=== PATIENT | male | born 1985 | race Caucasian/White ===

== ENCOUNTER 2019-08-23 16:11 | Outpatient (CLI) | payer OTHER, SELFPAY ==
[2019-08-23 16:43] LABS: Creatinine Urine 74.93 mg/dL (40-278)
[2019-08-23 16:50] LABS: MALB Creatinine Ratio 14.6 mg/g (0-30)
[2019-08-23 17:35] LABS: Alanine Aminotransferase 29 U/L (16-63); Albumin Level 3.8 g/dL (3.4-5.0); Alkaline Phosphatase 73 U/L (46-116); Anion Gap 10.8 mmol/L (7-16); Aspartate Amino Transferase 16 U/L (15-37); Bilirubin,Total 0.3 mg/dL (0.00-1.00); Blood Urea Nitrogen 10 mg/dL (7-18); Calcium 8.8 mg/dL (8.5-10.1); Carbon Dioxide 29 mmol/L (21-32); Chloride 97 mmol/L (98-108); Cholesterol 230 mg/dL (0-200); Estimated Glomerular Filt Rate > 60; Glucose 365 mg/dL (70-99); HDL Direct 32 mg/dL (40-60); LDL Cholesterol Calculated 114 mg/dL (<130); Osmolality Calculated 290 mOsm/kg (285-295); Potassium 3.8 mmol/L (3.5-5.1); Prostate Specific Antigen 0.9 ng/mL (< OR = 4.0); Sodium 133 mmol/L (136-145); Triglycerides 420 mg/dL (0-150)
[2019-08-23 17:46] LABS: LDL Cholesterol Direct 136 mg/dL (0-130)
== END 2019-08-23 16:12 | disposition home or self-care (01) ==
LOC: CHSLAB 16:16
PROVIDERS: PCP Family Medicine; Visit Provider Family Medicine
DX: R32 Unspecified urinary incontinence (principal); E11.9 Type 2 diabetes mellitus without complications
CPT/HCPCS: 36415; 80053; 80061; 82043; 83036; 83721; 84153; 87086

== ENCOUNTER 2020-03-08 08:38 | Outpatient (CLI) | payer OTHER, SELFPAY ==
[2020-03-08 09:03] LABS: Hemoglobin A1C 10.6 % (<5.7)
== END 2020-03-08 08:39 | disposition home or self-care (01) ==
LOC: CHSLAB 08:40
PROVIDERS: PCP Family Medicine; Visit Provider Family Medicine
DX: E11.9 Type 2 diabetes mellitus without complications (principal); I10 Essential (primary) hypertension; G47.33 Obstructive sleep apnea (adult) (pediatric); E78.5 Hyperlipidemia, unspecified
CPT/HCPCS: 36415; 83036

== ENCOUNTER 2020-06-17 14:43 | Outpatient (CLI) | payer OTHER, SELFPAY | END 2020-06-17 14:44 | disposition home or self-care (01) | LOC: CHSLAB 14:45 | PROVIDERS: PCP Family Medicine; Visit Provider Family Medicine | DX: E11.9 Type 2 diabetes mellitus without complications (principal) | CPT/HCPCS: 36415; 83036 ==

== ENCOUNTER 2021-08-25 09:43 | Outpatient (CLI) | payer OTHER, SELFPAY ==
[2021-08-25 10:24] LABS: Creatinine Urine 99.41 mg/dL (40-278); MALB Creatinine Ratio 22.5 mg/g (0-30); Microalbumin Urine Random 22.4 mg/L
[2021-08-25 10:51] LABS: Alanine Aminotransferase 73 U/L (16-63); Alkaline Phosphatase 75 U/L (46-116); Anion Gap 9 mmol/L (8-16); Aspartate Amino Transferase 33 U/L (15-37); Bilirubin,Total 0.4 mg/dL (0.00-1.00); Blood Urea Nitrogen 11 mg/dL (7-18); Calcium 8.7 mg/dL (8.5-10.1); Carbon Dioxide 25 mmol/L (21-32); Chloride 102 mmol/L (98-108); Cholesterol 186 mg/dL (0-200); Estimated Glomerular Filt Rate > 60; Glucose 300 mg/dL (70-99); HDL Direct 33 mg/dL (40-60); LDL Cholesterol Calculated 70 mg/dL (<130); Osmolality Calculated 292 mOsm/kg (285-295); Potassium 4.3 mmol/L (3.5-5.1); Sodium 136 mmol/L (136-145); Total Protein 7.2 g/dL (6.4-8.2); Triglycerides 414 mg/dL (0-150)
[2021-08-25 10:57] LABS: LDL Cholesterol Direct 89 mg/dL (0-130)
== END 2021-08-25 09:44 | disposition home or self-care (01) ==
LOC: CHSLAB 09:50
PROVIDERS: PCP Family Medicine; Visit Provider Family Medicine
DX: E11.9 Type 2 diabetes mellitus without complications (principal)
CPT/HCPCS: 36415; 80053; 80061; 82043; 83036; 83721

== ENCOUNTER 2024-03-21 09:29 | Outpatient (CLI) | payer OTHER, SELFPAY ==
[2024-03-21 09:43] LABS: Basophils Absolute Auto 0.05 K/mm3 (0.00-0.10); Basophils Percent Auto 0.6 % (0.0-1.0); Eosinophils Absolute Auto 0.15 K/mm3 (0.02-0.50); Eosinophils Percent Auto 1.9 % (1.0-6.0); Hematocrit 45.7 % (40.0-54.0); Hemoglobin 15.5 g/dL (14.0-18.0); Immature Granulocyte Absolute 0.04 K/mm3 (0.00-0.00); Immature Granulocyte Percent A 0.5 % (0.0-0.0); Lymphocytes Absolute Auto 1.94 K/mm3 (1.10-4.50); Lymphocytes Percent Auto 24.9 % (18.0-42.0); Mean Corpuscular HGB Conc 33.9 g/dL (32-36); Mean Corpuscular Hemoglobin 29.4 pg (27.0-31.0); Mean Corpuscular Volume 86.7 fL (78.0-102.0); Mean Platelet Volume 10.2 fl (8.7-11.0); Monocytes Absolute Auto 0.44 K/mm3 (0.10-0.90); Monocytes Percent Auto 5.6 % (2.0-11.0); Neutrophils Absolute Auto 5.18 K/mm3 (1.70-7.20); Neutrophils Percent Auto 66.5 % (50.0-70.0); Platelet Count Result 179 K/mm3 (150-420); Red Blood Count 5.27 M/mm3 (4.70-6.10); Red Cell Distribution Width 12.1 % (11.6-14.4); White Blood Count 7.8 K/mm3 (4.8-10.8)
[2024-03-21 09:54] LABS: Creatinine Urine 199.07 mg/dL (40-278); MALB Creatinine Ratio 20.9 mg/g (0-30); Microalbumin Urine Random 41.8 mg/L
[2024-03-21 09:55] LABS: Hemoglobin A1C 10.1 % (<5.7)
[2024-03-21 10:18] LABS: Alanine Aminotransferase 47 U/L (16-63); Albumin Level 3.8 g/dL (3.4-5.0); Alkaline Phosphatase 67 U/L (46-116); Anion Gap 7 mmol/L (4-12); Aspartate Amino Transferase 19 U/L (15-37); Bilirubin,Total 0.5 mg/dL (0.00-1.00); Blood Urea Nitrogen 8 mg/dL (7-18); Calcium 9.1 mg/dL (8.5-10.1); Carbon Dioxide 31 mmol/L (21-32); Chloride 101 mmol/L (98-108); Cholesterol 181 mg/dL (0-200); Estimated Glomerular Filt Rate > 60; Glucose 308 mg/dL (70-99); HDL Direct 42 mg/dL (40-60); LDL Cholesterol Calculated 96 mg/dL (<130); Osmolality Calculated 298 mOsm/kg (285-295); Potassium 5.3 mmol/L (3.5-5.1); Sodium 139 mmol/L (136-145); Total Protein 7.3 g/dL (6.4-8.2); Triglycerides 215 mg/dL (0-150)
--- OUTSIDE RECORDS SUMMARY | 2024-03-21 10:22 | XMS_ITS | Clinical Summary ---
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 Gender Identity Not on file Sexual Orientation Not on file Plan of Treatment Health Maintenance Due Date Last Done Comments Annual Physical 07/21/1986 Hepatitis C 07/21/2001 DTaP, Tdap and Td Vaccines ( 1 - Tdap) 07/21/2002 Hepatitis B Vaccines (1 of 3 - 19+ 3-dose series) 07/21/2002 COVID-19 Vaccine (2023-2 5 season) 2023 Influenza Adult (#1) 2023 HPV Vaccines Aged Out No longer eligi ble based on patient's age to complete this topic Meningococcal B Vaccine Aged Out No l onger eligible based on patient's age to complete this topic Meningococcal Vaccine Aged Out No joi efrain eligible based on patient's age to complete this topic Pneumococcal Vaccine: Pediat rics (0 to 5 Years) and At-Risk Patients (6 to 64 Years) Aged Out No longer eligible b ased on patient's age to complete this topic RSV Immunizations Under 20 Months Aged Out No longer eligible based on patient's age to complete this topic
--- OUTSIDE RECORDS SUMMARY | 2024-03-21 10:22 | XMS_ITS | Encounter Summary ---
Author Organization [facility] Address [address] [place] [address] Care Team Providers Care Message Broker Developer Name Role Phone Gregg Solitario DO Primary Care Provider [phone] Encounter Details Date Type Department Care Team (Late st Contact Info) Description 03/16/2024 Results Follow-Up [facility] at Work [employer] [place] [address] [place] [place] [address] Amy Amaro MD [address] [place] [place] [address] TSH, LIPID PANEL, COMPREHENSIVE METABOLIC PANEL, CBC WITH DIFFERENTIAL Social History Tobacco Use Types Packs/Day Years Used Date Smoking Tobacco: Never Assessed Sex and Gender Information Value Date Recorded Sex Assigned at Male 10/12/2023 6:32 AM CDT Legal Sex Male 2:10 PM CDT Gender Identity Male 10/12/2023 6:32 AM CDT Sexual Orientation Straight 10/12/2023 6: 32 AM CDT documented as of this encounter Miscellaneous Notes * Result Encounter Note - Jenn Morales - 03/16/2024 1:20 PM CST Called and informed pt who voiced understanding. CTOR OF TEACHING AND LEARNING documented in this encounter Plan of Treatment Not on file documented as of this encounter Visit Diagnoses Not on filedocumented in this encounter Care Teams Message Broker Developer Relationship Specialty Start Date End Date Gregg Solitario DO [address] [place] [address] PCP - General Family Practice 04/03/22 documented as of this encounter
--- OUTSIDE RECORDS SUMMARY | 2024-03-21 10:22 | XMS_ITS | Clinical Summary ---
Author Organization [facility] [employer] [place] Address [address] [address] [address] Care Team Providers Care Trousseau Consultant Name Role Phone Altaf Greggmagdi TOLLIVER Primary Care Provider [phone] Allergies No known active allergies Medications Mounjaro 7.5 mg/0.5 mL Pen Injector Inject 7.5 mg by subcutaneous injection every 7 days. 4 Active metFORMIN (GLUCOPHAGE) 1,000 mg tablet Take 1,000 mg by mouth 2 times daily with meals. Active lisinopriL (PRINIVIL) 5 mg tablet Take 5 mg by mouth daily. Active buPROPion HCL (WELLBUTRIN SR) 200 mg Sustained Release 12 hour tablet Take 200 mg by mouth 2 times daily. Active Active Problems No known active problems Encounters Date Type Department Care Team Description 03/16/2024 Results Follow-Up [facility] [place] [address] [place] [address] Amy Amaro MD TSH, LIPID PANEL, COMPREHENSIVE METABOLIC PANEL, CBC WITH DIFFERENTIAL 03/15/2024 9:40 AM PARA EDUCATOR Office Visit [facility] [place] [address] [place] [address] Screening for condition (Primary Dx) 03/14/2024 External Device Data STL ABSTRACTION Provider, Abstract 02/29/2024 7:30 AM PARA EDUCATOR Office Visit [facility] [employer] [place] [address] [place] [address] Amy Amaro MD Influenza A (Primary Dx) 02/29/2024 External Device Data STL ABSTRACTION Provider, Abstract from Last 3 Months Social History Tobacco Use Types Packs/Day Years Used Date Smoking Tobacco: Never Assessed Sex and Gender Information Value Date Recorded Sex Assigned at Male 10/12/2023 6:32 AM CDT Legal Sex Male 2:10 PM CDT Gender Identity Male 10/12/2023 6:32 AM CDT Sexual Orientation Straight 10/12/2023 6: 32 AM CDT Last Filed Vital Signs Vital Sign Reading Time Taken Comments Blood Pressure 98/78 03/15/2024 9:35 AM PARA EDUCATOR Pulse 90 02/29/2024 7:27 AM PARA EDUCATOR Temperature 35.7 C (96.2 F) 02/29/2024 7:27 AM PARA EDUCATOR Respiratory Rate 18 02/29/2024 7:27 AM PARA EDUCATOR Oxygen Saturation 99% 02/29/2024 7:27 AM PARA EDUCATOR Inhaled Oxygen Concentration - - Weight 92.8 kg (204 lb 9.6 oz) 03/15/2024 9:35 A M PARA EDUCATOR Height 172.7 cm (5' 8 ) 03/15/2024 9:35 AM PARA EDUCATOR Body Mass Index 31.11 03/15/2024 9:35 AM PARA EDUCATOR Plan of Treatment Health Maintenance Due Date Last Done Comments Pre-Diabetes and Diabetes Screening 1983 DTAP/TDAP/TD VACCINES (1 - Tdap) 07/21/2002 HEPATITIS B VACCINES (1 of 3 - 19+ 3-dose series) 07/21/2002 INFLUENZA VACCINE (#1) 2023 12/13/2004 HPV VACCINES Aged Out No longer eligi ble based on patient's age to complete this topic Procedures Procedure Name Priority Date/Time Associated Diagnosis Comments CBC WITH DIFFERENTIAL Routine 03/15/2024 9:24 AM PARA EDUCATOR Screening for condition COMPREHENSIVE METABOLIC PANEL Routine 03/15/2024 9:24 AM PARA EDUCATOR Screening for condition LIPID PANEL Routine 03/15/2024 9:24 AM PARA EDUCATOR Screening for condition TSH Routine 03/15/2024 9:24 AM PARA EDUCATOR Screening for condition from Last 3 Months Results * CBC WITH DIFFERENTIAL (03/15/2024 9:24 AM PARA EDUCATOR) WBC 6.7 3.8 - 10.8 Thousand/u L [facility] RBC 4.89 4.20 - 5.80 Million/uL [facility] HEMOGLOBIN 14.9 13.2 - 17.1 g/dL [facility] HEMATOCRIT 43.7 38.5 - 50.0 % [facility] MCV 89.4 80.0 - 100.0 fL [facility] MCH 30.5 27.0 - 33.0 pg [facility] MCHC 34.1 32.0 - 36.0 g/dL [facility] Comment: For adults, a slight decrease in the calculated MCHC value (in the range of 30 to 32 g/dL) is most likely not clinically significant; however, it should be interpreted with caution in correlation with other red cell parameters and the patient's clinical condition. RDW 12.8 11.0 - 15.0 % [facility] PLATELETS 161 140 - 400 Thousand/u L [facility] MPV 10.9 7.5 - 12.5 fL [facility] NEUTROPHIL ABSOLUTE 3,973 1,500 - 7,800 cells/uL [facility] LYMPHOCYTE ABSOLUTE 2,057 850 - 3,900 cells/uL [facility] MONOCYTE ABSOLUTE 509 200 - 950 cells/uL [facility] EOSINOPHIL ABSOLUTE 121 15 - 500 cells/uL [facility] BASOPHILS ABSOLUTE 40 0 - 200 cells/uL [facility] NEUTROPHIL 59.3 % [facility] LYMPHOCYTES 30.7 % [facility] MONOCYTE 7.6 % [facility] EOSINOPHILS 1.8 % [facility] BASOPHILS 0.6 % [facility] Comment: Test Performed at: [employer] [facility] [id number] [address] Birgit De La O MD Blood 03/15/2024 9:24 AM PARA EDUCATOR 03/16/2024 3:58 AM PARA EDUCATOR us Amy Amaro MD HEMATOLOGY ORDERABLES Final Re sult Performing Organization Address [facility] Co de Phone Number [facility] [phone] [facility] [address] * TSH (03/15/2024 9:24 AM PARA EDUCATOR) TSH 0.62 0.40 - 4.50 mIU/L [facility] Comment: Test Performed at: [facility] [place] [address] [place] [id number] Birgit De La O MD Blood 03/15/2024 9:24 AM PARA EDUCATOR 03/16/2024 3:58 AM PARA EDUCATOR us Amy Amaro MD CHEMISTRY ORDERABLES Final Res ult Performing Organization Address [facility] Co de Phone Number [facility] [phone] [facility] [address] * (ABNORMAL) LIPID PANEL (03/15/2024 9:24 AM PARA EDUCATOR) Pathologist [facility] CHOLESTEROL 169 <200 mg/dL [facility] HDL 38(L) > OR = 40 mg/dL [facility] TRIGLYCERIDE 122 <150 mg/dL [facility] LDL CALCULATED 108(H) mg/dL (calc) [facility] Comment: Reference range: <100 Desirable range <100 mg/dL for primary prevention; <70 mg/dL for patients with CHD or diabetic patients with > or = 2 CHD risk factors. LDL-C is now calculated using the Mark-Tita calculation, which is a validated novel method providing better accuracy than the Friedewald equation in the estimation of LDL-C. Mark SS et al. DAREN. 2013;310(19): 4405-6075 (http://education.FoodyDirect.Advanced Photonix/faq/KDR418) CHOL/HDL RATIO 4.4 <5.0 (calc) [facility] NON-HDL CHOLESTEROL 131(H) <130 mg/dL (calc) [facility] Comment: For patients with diabetes plus 1 major ASCVD risk factor, treating to a non-HDL-C goal of <100 mg/dL (LDL-C of <70 mg/dL) is considered a therapeutic option. Test Performed at: [facility] [address] [address] Birgit De La O MD Blood 03/15/2024 9:24 AM PARA EDUCATOR 03/16/2024 3:58 AM PARA EDUCATOR us Amy Amaro MD CHEMISTRY ORDERABLES Final Res ult [facility] [phone] [employer] [address] [address] * (ABNORMAL) COMPREHENSIVE METABOLIC PANEL (03/15/2024 9:24 AM PARA EDUCATOR) GLUCOSE 161(H) 65 - 99 mg/dL [facility] Comment: Fasting reference interval For someone without known diabetes, a glucose value >125 mg/dL indicates that they may have diabetes and this should be confirmed with a follow-up test. BUN 8 7 - 25 mg/dL [facility] CREATININE 0.74 0.60 - 1.29 mg/dL [facility] GFR 117 > OR = 60 mL/min/1. 73m2 [facility] BUN/CREAT RATIO SEE NOTE: 6 - 22 (calc) [facility] Comment: Not Reported: BUN and Creatinine are within reference range. SODIUM 140 135 - 146 mmol/L [facility] POTASSIUM 4.7 3.5 - 5.3 mmol/L [facility] CHLORIDE 103 98 - 110 mmol/L [facility] CO2 28 20 - 32 mmol/L [facility] CALCIUM 9.0 8.6 - 10.3 mg/dL [facility] TOTAL PROTEIN 6.9 6.1 - 8.1 g/dL [facility] ALBUMIN 4.2 3.6 - 5.1 g/dL [facility] GLOBULIN 2.7 1.9 - 3.7 g/dL (calc) [facility] ALBUMIN/GLOBULIN RATIO 1.6 1.0 - 2.5 (calc) [facility] BILIRUBIN TOTAL 0.5 0.2 - 1.2 mg/dL [facility] ALKALINE PHOSPHATASE 53 36 - 130 U/L [facility] AST 22 10 - 40 U/L [facility] ALT 33 9 - 46 U/L [facility] Comment: Test Performed at: [facility] [address] [place] [address] Birgit De La O MD Blood 03/15/2024 9:24 AM PARA EDUCATOR 03/16/2024 3:58 AM PARA EDUCATOR us Amy Amaro MD CHEMISTRY ORDERABLES Final Res ult [facility] [phone] [facility] [address] [place] [address] from Last 3 Months Insurance * Guarantor: [employer] A THRU D (C) Account Type Relation to Patient Date of Phone Billing Address Corporate Employer ATTN: JENARO MACKAY [address] [address] ALLEGIAN OPEN ACCESS Care Teams Trousseau Consultant Relationship Specialty Start Date End Date Gregg Solitario DO [address] [place] [address] PCP - General Family Practice 04/03/22
== END 2024-03-21 09:30 | disposition home or self-care (01) ==
LOC: CHSLAB 09:31
PROVIDERS: PCP Family Medicine; Visit Provider Family Medicine
DX: E11.9 Type 2 diabetes mellitus without complications (principal); I10 Essential (primary) hypertension
CPT/HCPCS: 36415; 80053; 80061; 82043; 83036; 85025

== ENCOUNTER 2024-04-03 09:24 | Emergency (ER) | payer OTHER, SELFPAY ==
--- NOTE | ~2024-04-03 | XR_ITS ---
CHEST RADIOGRAPH, PA AND LATERAL CLINICAL HISTORY: pt states chest pain since this morning, cough . COMPARISON: None available TECHNIQUE: PA and lateral views of the chest. FINDINGS The cardiomediastinal silhouette is unremarkable. The lungs are clear. Visualized osseous structures and soft tissues are unremarkable. IMPRESSION: No focal infiltrate or effusion. Reviewed, dictated and finalized at location A. COAL KILN BURNER
--- NOTE | ~2024-04-03 | CT_ITS ---
EXAMINATION: CTA chest PE protocol DATE: 04/03/2024 16:07 INDICATION: Chest wall pain. Shortness of breath. TECHNIQUE: Computed tomography angiography (CTA) of the chest was performed with 100 mL Omnipaque-350 intravenous contrast timed to evaluate the pulmonary arteries. Coronal maximum intensity projection 3D-reconstructions were created by the technologist. Automated exposure control and iterative reconst ruction technique were employed. The dose-length product was 595.54 mGy-cm. COMPARISON: Chest 2 views 04/03/2024 FINDINGS: The lungs demonstrate mild atelectasis. No pleural effusion. The heart size is normal. No p ericardial effusion. There are coronary artery calcifications. There is no pulmonary embolus. There i s diffuse hepatic steatosis. There is mild thoracic spondylosis. IMPRESSION: 1. No pulmonary embolus. Reviewed, dictated and finalized at location A. RTISING SALES CONSULTANT IMPRESSION: 1. No pulmonary embolus.
--- NOTE | 2024-04-03 09:26 | ECG_ITS ---
Test Date: 2024-04-03 09:31:12 Measurements Intervals [place] Rate: 98 P: 12 WI: 124 QRS: 18 QRSD: 88 T: 33 QT: 268 QTc: 343 Interpretive Statements SINUS RHYTHM NONSPECIFIC T-WAVE ABNORMALITY- ANTEROLAT/INF LEADS BASELINE ARTIFACT- I, II, AVR BORDERLINE ECG No previous ECG available for comparison Electronically Signed On 04-03-2024 10:04:48 PACKAGING TECH by Cesario Matthews D.O.
[2024-04-03 09:27] VITALS: BP 127/81; PULSE 95; RESP 19; TEMP 36.6; O2SAT 100
[2024-04-03 09:49] LABS: Basophils Percent Auto 0.4 % (0.2-1.2); Eosinophils Percent Auto 0.1 % (0-4.4); Hematocrit 46.3 % (42.0-52.0); Hemoglobin 15.8 g/dL (14.0-18.0); Immature Granulocyte Absolute 0.05 K/mm3 (0.00-0.031); Immature Granulocyte Percent A 0.6 % (0-0.5); Lymphocytes Absolute Auto 0.93 K/mm3 (0.9-3.2); Lymphocytes Percent Auto 11.2 % (18.3-44.2); Mean Corpuscular HGB Conc 34.1 g/dl (32-36); Mean Corpuscular Hemoglobin 29.4 pg (26-34); Mean Corpuscular Volume 86.1 fl (80-100); Mean Platelet Volume 9.9 fl (7.4-10.4); Monocytes Absolute Auto 0.5 K/mm3 (0.1-0.6); Neutrophils Absolute Auto 6.8 K/mm3 (1.3-6.7); Neutrophils Percent Auto 81.7 % (45.5-73.1); Platelet Count Result 207 k/mm3 (150-375); Red Blood Count 5.38 M/mm3 (4.6-6.20); Red Cell Distribution Width 12.4 % (11.5-14.5); White Blood Count 8.3 K/mm3 (4.5-10.0)
[2024-04-03 10:00] LABS: Partial Thromboplastin Time 25.7 Seconds (22.3-36.8)
[2024-04-03 10:02] LABS: Alanine Aminotransferase 28 U/L (6-50); Albumin Level 4.1 g/dL (3.5-5.1); Alkaline Phosphatase 68 U/L (38-126); Anion Gap 11 mmol/L (4-12); Aspartate Amino Transferase 21 U/L (17-59); Bilirubin,Total 0.9 mg/dL (0.2-1.3); Blood Urea Nitrogen 13 mg/dL (9-20); Carbon Dioxide 25 mmol/L (22-30); Chloride 96 mmol/L (98-107); Estimated CRCL calculation 108 ml/min; Estimated Glomerular Filt Rate > 60; Glucose 354 mg/dL (65-110); Lipase 62 U/L (23-300); Potassium 4.5 mmol/L (3.4-5.0); Sodium 132 mmol/L (137-145)
--- OUTSIDE RECORDS SUMMARY | 2024-04-03 10:02 | XMS_ITS | Clinical Summary ---
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
--- OUTSIDE RECORDS SUMMARY | 2024-04-03 10:02 | XMS_ITS | Encounter Summary ---
Author Organization [facility] Address [address] [place] [address] Care Team Providers Care Thermite Bomb Loader Name Role Phone Gregg Solitario DO Primary Care Provider [phone] Encounter Details Date Type Department Care Team (Late st Contact Info) Description 03/16/2024 Results Follow-Up [facility] at [facility] [employer] [address] [place] [address] Amy Amaro MD [address] [place] [address] TSH, LIPID PANEL, COMPREHENSIVE METABOLIC [...] Called and informed pt who voiced understanding. STAPLER documented in this encounter Plan of Treatment Not on file documented as of this encounter Visit Diagnoses Not on filedocumented in this encounter Care Teams Thermite Bomb Loader Relationship Specialty Start Date End Date Gregg Solitario DO [address] [place] [address] PCP - General Family Practice 04/03/22 documented as of this encounter
--- OUTSIDE RECORDS SUMMARY | 2024-04-03 10:02 | XMS_ITS | Clinical Summary ---
Author Organization [facility] [employer] [place] Address [address] [address] Care Team Providers Care Radio Repairer Name Role Phone Altaf Greggmagdi TOLLIVER Primary Care Provider [phone] Allergies No known active allergies Medications Mounjaro [...] Department Care Team Description 03/16/2024 Results Follow-Up [facility] [place] [address] [facility] [place] [address] Amy Amaro MD TSH, LIPID PANEL, COMPREHENSIVE METABOLIC PANEL, CBC WITH DIFFERENTIAL 03/15/2024 9:40 AM FAST FOOD CASHIER Office Visit [facility] [place] [address] [facility] [place] [address] Screening for condition (Primary Dx) 03/14/2024 External Device Data STL ABSTRACTION Provider, Abstract 02/29/2024 7:30 AM FAST FOOD CASHIER Office Visit [facility] [employer] [place] [address] [place] [address] Amy Amaro MD Influenza A [...] Comments Blood Pressure 98/78 03/15/2024 9:35 AM FAST FOOD CASHIER Pulse 90 02/29/2024 7:27 AM FAST FOOD CASHIER Temperature 35.7 C (96.2 F) 02/29/2024 7:27 AM FAST FOOD CASHIER Respiratory Rate 18 02/29/2024 7:27 AM FAST FOOD CASHIER Oxygen Saturation 99% 02/29/2024 7:27 AM FAST FOOD CASHIER Inhaled Oxygen Concentration - - Weight 92.8 kg (204 lb 9.6 oz) 03/15/2024 9:35 A M FAST FOOD CASHIER Height 172.7 cm (5' 8 ) 03/15/2024 9:35 AM FAST FOOD CASHIER Body Mass Index 31.11 03/15/2024 9:35 AM FAST FOOD CASHIER Plan of Treatment Health Maintenance Due Date [...] CBC WITH DIFFERENTIAL Routine 03/15/2024 9:24 AM FAST FOOD CASHIER Screening for condition COMPREHENSIVE METABOLIC PANEL Routine 03/15/2024 9:24 AM FAST FOOD CASHIER Screening for condition LIPID PANEL Routine 03/15/2024 9:24 AM FAST FOOD CASHIER Screening for condition TSH Routine 03/15/2024 9:24 AM FAST FOOD CASHIER Screening for condition from Last 3 Months Results * CBC WITH DIFFERENTIAL (03/15/2024 9:24 AM FAST FOOD CASHIER) WBC 6.7 3.8 - 10.8 Thousand/u L [...] [facility] Comment: Test Performed at: [facility] [id number] [address] Birgit De La O MD Blood 03/15/2024 9:24 AM FAST FOOD CASHIER 03/16/2024 3:58 AM FAST FOOD CASHIER us Amy Aamro MD HEMATOLOGY ORDERABLES Final Re sult Performing Organization Address [facility] Co de Phone Number [facility] [phone] [facility] [address] * TSH (03/15/2024 9:24 AM FAST FOOD CASHIER) TSH 0.62 0.40 - 4.50 mIU/L [facility] Comment: Test Performed at: [facility] [address] [place] [phone] Birgit De La O MD Blood 03/15/2024 9:24 AM FAST FOOD CASHIER 03/16/2024 3:58 AM FAST FOOD CASHIER us Amy Amaro MD CHEMISTRY ORDERABLES Final Res ult Performing Organization Address [facility] Co de Phone Number [facility] [phone] [address] * (ABNORMAL) LIPID PANEL (03/15/2024 9:24 AM FAST FOOD CASHIER) Pathologist [facility] CHOLESTEROL 169 <200 mg/dL [facility] [...] LDL-C. Mark SS et al. DAREN. 2013;310(19): 7334-0123 (http://education.[employer]is.Livestar/faq/NXF799) CHOL/HDL RATIO 4.4 <5.0 (calc) [facility] NON-HDL CHOLESTEROL 131(H) <130 mg/dL (calc) [facility] Comment: For patients with diabetes plus 1 major ASCVD risk factor, treating to a non-HDL-C goal of <100 mg/dL (LDL-C of <70 mg/dL) is considered a therapeutic option. Test Performed at: [facility] [address] [address] Birgit De La O MD Blood 03/15/2024 9:24 AM FAST FOOD CASHIER 03/16/2024 3:58 AM FAST FOOD CASHIER us Amy Amaro MD CHEMISTRY ORDERABLES Final Res ult [facility] [phone] [facility] [address] [address] * (ABNORMAL) COMPREHENSIVE METABOLIC PANEL (03/15/2024 9:24 AM FAST FOOD CASHIER) GLUCOSE 161(H) 65 - 99 mg/dL [facility] Comment: Fasting reference interval For someone [...] [facility] Comment: Test Performed at: [facility] [address] [place] [address] Birgit De La O MD Blood 03/15/2024 9:24 AM FAST FOOD CASHIER 03/16/2024 3:58 AM FAST FOOD CASHIER us Amy Amaro MD CHEMISTRY ORDERABLES Final Res ult [facility] [phone] [facility] [address] [place] [address] from Last 3 Months Insurance * Guarantor: [employer] A THRU D (C) Account Type Relation to Patient Date of Phone Billing Address Corporate Employer ATTN: JENRAO MACKAY [address] [address] ALLEGIAN OPEN ACCESS Care Teams Radio Repairer Relationship Specialty Start Date End Date Gregg Solitario DO [address] [place] [address] PCP - General Family Practice 04/03/22
[2024-04-03 10:14] LABS: Troponin I < 0.012 ng/mL (0.000-0.034)
[2024-04-03 13:38] LABS: Troponin I < 0.012 ng/mL (0.000-0.034)
[2024-04-03 14:00] VITALS: BP 129/88; PULSE 89; RESP 21; O2SAT 97
--- NOTE | 2024-04-03 14:41 | ED_ITS ---
HPI - General Adult General Chief complaint: Chest Pain Stated complaint: chest pain Time Seen by Provider: 04/03/24 13:53 History of Present Illness HPI narrative: 38-year-old male presents emergency department for evaluation for body aches fatigue associated cough. Patient reports the symptoms started yesterday. This morning patient was having left lower chest wall tenderness to palpation. Patient denies any radiation the pain to his neck to his back or to his arms. Patient states that pain has resolved but patient does still feel fatigued. Patient denies any previous cardiac history. Related Data Allergies Allergy/AdvReac Type Severity Reaction Status Date / Time No Known Allergies Allergy Verified 03/27/24 13:34 Review of Systems 2 Review of Systems: All systems reviewed & are unremarkable except as noted in HPI and below PMFSH Past Medical History Medical History Hypertension ERROL (obstructive sleep apnea) DM2 (diabetes mellitus, type 2) Hyperlipidemia Diabetes mellitus Surgical History Surgical History No history of previous surgery No significant past surgical history Family History Family History Mother , Age 28 Acute myocardial infarction Social History Social History Smoking packs per day: 1 Smoking cigarettes per day: 20.0 Years smoked: 15 Smoking pack-years: 15.00 Smoking status: Former smoker Additional smoking assessment comments: Quit smoking August 2020. 15pk yr history. Gender identity (if verbalized by the patient): Male Exam 2 Narrative: APPEARANCE: Well appearing, no pain, no distress, well-nourished. HEAD: normocephalic, atraumatic. EYES: PERRLA/EOMI, conjunctivae clear. NOSE: Normal no drainage EARS:TMS clear with good light reflex. THROAT: Pharynx clear, no exudate. NECK: Supple. No adenopathy, no masses. RESPIRATORY: Airway patent, respirations nonlabored. Clear to auscultation bilaterally, no rales, rhonchi, wheezing. CARDIOVASCULAR: Regular rate and rhythm without murmurs rubs or gallops. ABDOMINAL: Soft, nontender, nondistended, normal bowel sounds MUSCULOSKELETAL: Moves all extremities. Strength/ROM intact, No edema, No calf tenderness. Reproducible chest wall tenderness NEURO: Alert. Cranial nerves II through XII intact. Grossly intact SKIN: Warm, dry. Normal Color Course Vital Signs Vital signs: Vital Signs Temperature 97.9 F 04/03/24 09:27 Pulse Rate 95 04/03/24 09:27 Respiratory Rate 19 04/03/24 09:27 Blood Pressure 127/81 04/03/24 09:27 Pulse Oximetry 100 04/03/24 09:27 Oxygen Delivery Room Air 04/03/24 09:27 Temperature 97.9 F 04/03/24 09:27 Pulse Rate 88 04/03/24 16:00 Respiratory Rate 21 H 04/03/24 16:00 Blood Pressure 123/83 04/03/24 16:00 Pulse Oximetry 99 04/03/24 16:00 Oxygen Delivery Room Air 04/03/24 14:00 Medical Decision Making MDM Narrative Medical decision making narrative: 38-year-old male to the emergency department for evaluation for body aches fatigue cough congestion and chest wall pain. Patient is currently afebrile with no leukocytosis hemoglobin of 15.8. INR is 1.0. Patient has no significant abnormalities on his CMP, patient is a type 2 diabetic and does have a blood sugar of 354. Patient was treated with IV fluids. CTA was negative for pulmonary embolism. Troponin was negative Differential Diagnosis Differential Diagnosis: Influenza, COVID, RSV, viral syndrome, pneumonia, ACS, pulmonary embolism Vital Signs Vital Signs: Vital Signs Temperature 97.9 F 04/03/24 09:27 Pulse Rate 95 04/03/24 09:27 Respiratory Rate 19 04/03/24 09:27 Blood Pressure 127/81 04/03/24 09:27 Pulse Oximetry 100 04/03/24 09:27 Oxygen Delivery Room Air 04/03/24 09:27 Temperature 97.9 F 04/03/24 09:27 Pulse Rate 88 04/03/24 16:00 Respiratory Rate 21 H 04/03/24 16:00 Blood Pressure 123/83 04/03/24 16:00 Pulse Oximetry 99 04/03/24 16:00 Oxygen Delivery Room Air 04/03/24 14:00 Lab Data Lab results reviewed: Yes I reviewed the patient's lab results. 04/03/24 09:40 04/03/24 09:40 Labs: Lab Results 04/03/24 04/03/24 04/03/24 Range/Units 09:40 12:59 14:46 WBC 8.3 (4.5-10.0) K/mm3 RBC 5.38 (4.6-6.20) M/mm3 Hgb 15.8 (14.0-18.0) g/dL Hct 46.3 (42.0-52.0) % MCV 86.1 (80-100) fl MCH 29.4 (26-34) pg MCHC 34.1 (32-36) g/dl RDW 12.4 (11.5-14.5) % Plt Count 207 (150-375) k/mm3 MPV 9.9 (7.4-10.4) fl Immature Gran % (Auto) 0.6 H (0-0.5) % Neut % (Auto) 81.7 H (45.5-73.1) % Lymph % (Auto) 11.2 L (18.3-44.2) % [place] % (Auto) 6.0 (2.6-8.5) % Eos % (Auto) 0.1 (0-4.4) % Baso % (Auto) 0.4 (0.2-1.2) % Lymph # (Auto) 0.93 (0.9-3.2) K/mm3 [place] # (Auto) 0.5 (0.1-0.6) K/mm3 Eos # (Auto) 0.0 (0-0.3) K/mm3 Baso # (Auto) 0.0 (0.0-0.1) K/mm3 Abs Immat Gran (auto) 0.05 H (0.00-0.031) K/mm3 Absolute Neuts (auto) 6.8 H (1.3-6.7) K/mm3 Absolute Nucleated RBC 0.000 (0.0-0.012) K/mm3 Nucleated RBC % 0.0 (0.0-0.2) % PT 14.0 (11.1-14.7) Seconds INR 1.0 APTT 25.7 (22.3-36.8) Seconds Sodium 132 L (137-145) mmol/L Potassium 4.5 (3.4-5.0) mmol/L Chloride 96 L (98-107) mmol/L Carbon Dioxide 25 (22-30) mmol/L Anion Gap 11 (4-12) mmol/L BUN 13 (9-20) mg/dL Creatinine 0.76 (0.7-1.3) mg/dL Estim Creat Clear Calc 108 ml/min Estimated GFR > 60 (59 - ) Glucose 354 H (65-110) mg/dL Calcium 9.0 (8.4-10.2) mg/dL Total Bilirubin 0.9 (0.2-1.3) mg/dL AST 21 (17-59) U/L ALT 28 (6-50) U/L Alkaline Phosphatase 68 (38-126) U/L Troponin I < 0.012 < 0.012 (0.000-0.034) ng/mL Total Protein 8.0 (6.3-8.2) g/dL Albumin 4.1 (3.5-5.1) g/dL Lipase 62 (23-300) U/L Influenza A (RT-PCR) Negative (Negative) Influenza B (RT-PCR) Negative (Negative) RSV (RT-PCR) Negative (Negative) SARS-CoV-2 RNA (RT-PCR) Negative (Negative) 04/03/24 Range/Units 16:37 WBC (4.5-10.0) K/mm3 RBC (4.6-6.20) M/mm3 Hgb (14.0-18.0) g/dL Hct (42.0-52.0) % MCV (80-100) fl MCH (26-34) pg MCHC (32-36) g/dl RDW (11.5-14.5) % Plt Count (150-375) k/mm3 MPV (7.4-10.4) fl Immature Gran % (Auto) (0-0.5) % Neut % (Auto) (45.5-73.1) % Lymph % (Auto) (18.3-44.2) % [place] % (Auto) (2.6-8.5) % Eos % (Auto) (0-4.4) % Baso % (Auto) (0.2-1.2) % Lymph # (Auto) (0.9-3.2) K/mm3 [place] # (Auto) (0.1-0.6) K/mm3 Eos # (Auto) (0-0.3) K/mm3 Baso # (Auto) (0.0-0.1) K/mm3 Abs Immat Gran (auto) (0.00-0.031) K/mm3 Absolute Neuts (auto) (1.3-6.7) K/mm3 Absolute Nucleated RBC (0.0-0.012) K/mm3 Nucleated RBC % (0.0-0.2) % PT (11.1-14.7) Seconds INR APTT (22.3-36.8) Seconds Sodium (137-145) mmol/L Potassium (3.4-5.0) mmol/L Chloride (98-107) mmol/L Carbon Dioxide (22-30) mmol/L Anion Gap (4-12) mmol/L BUN (9-20) mg/dL Creatinine (0.7-1.3) mg/dL Estim Creat Clear Calc ml/min Estimated GFR (59 - ) Glucose (65-110) mg/dL Calcium (8.4-10.2) mg/dL Total Bilirubin (0.2-1.3) mg/dL AST (17-59) U/L ALT (6-50) U/L Alkaline Phosphatase (38-126) U/L Troponin I < 0.012 (0.000-0.034) ng/mL Total Protein (6.3-8.2) g/dL Albumin (3.5-5.1) g/dL Lipase (23-300) U/L Influenza A (RT-PCR) (Negative) Influenza B (RT-PCR) (Negative) RSV (RT-PCR) (Negative) SARS-CoV-2 RNA (RT-PCR) (Negative) Imaging Data Radiologist's impression: Impressions Chest X-Ray 04/03/24 09:46 IMPRESSION: No focal infiltrate or effusion. Chest CTA 04/03/24 16:09 IMPRESSION: 1. No pulmonary embolus. Discharge Plan Discharge Clinical Impression: Acute viral syndrome Patient Disposition: Home, Self-Care Condition: Stable Instructions: Antibiotic Form, Viral Syndrome (ED) Additional Instructions: Tylenol and ibuprofen for pain control. Drink plenty of fluids. Have close follow-up with your primary care physician. Have close follow-up with your primary care physician for additional outpatient cardiac testing. If you have any worsening symptoms please call or return to the emergency department. Patient Language: Samoan Prescriptions: No Action dapagliflozin propanediol [Farxiga] 10 mg tablet 10 mg PO DAILY Qty: 90 3RF ondansetron 4 mg tablet,disintegrating 4 mg PO Q8H PRN (Reason: nausea and vomiting) Qty: 30 0RF diphenoxylate-atropine [Lomotil] 2.5-0.025 mg tablet 1 tablet PO TID Qty: 30 0RF OneTouch Ultra Blue Test Strip Strip See Rx Instructions .ROUTE .COMPLEX Qty: 100 5RF Dose Instruction: USE FOR TESTING THREE TIMES A DAY DIRECTED Rx Instructions: USE FOR TESTING THREE TIMES A DAY DIRECTED lancets [OneTouch Delica Plus Lancet] 33 gauge misc See Rx Instructions .ROUTE .COMPLEX Qty: 100 5RF Dose Instruction: USE FOR TESTING THREE TIMES A DAY DIRECTED Rx Instructions: USE FOR TESTING THREE TIMES A DAY DIRECTED (DME) pen needle, diabetic [TRUEplus Pen Needle] 31 gauge x 3/16 needle See Rx Instructions .ROUTE .COMPLEX Qty: 100 3RF Dose Instruction: USE TWICE A DAY DIRECTED Rx Instructions: USE TWICE A DAY DIRECTED. Dx: E11.9 Mounjaro 7.5 mg/0.5 mL pen injector 7.5 mg subcut WEEKLY Qty: 18 3RF Rx Instructions: Patient was given samples in office 03/27/24 #3 pens Lot #[id number] EXP 08/14/2025 Education Given; documented in logs- DEANNA Butler/ Dr. Altaf MD Follow-up/Referrals: Gregg Solitario, DO [Primary Care Provider] -
[2024-04-03 15:00] VITALS: BP 128/85; PULSE 86; RESP 21; O2SAT 98
[2024-04-03 15:27] LABS: Influenza A QL RT-PCR Negative (Negative); Influenza B QL RT-PCR Negative (Negative); RSV RNA, RT-PCR Negative (Negative); SARS-CoV-2 RNA PCR Negative (Negative)
[2024-04-03 16:00] VITALS: BP 123/83; PULSE 88; RESP 21; O2SAT 99
--- OUTSIDE RECORDS SUMMARY | 2024-04-03 16:06 | XMS_ITS | Clinical Summary ---
Author Organization [facility] [place] Address [address] [address] Care Team Providers Care Director Stars Name Role Phone Altaf Greggmagdi TOLLIVER Primary Care Provider [phone] Allergies No known active allergies Medications Mounjaro [...] Department Care Team Description 03/16/2024 Results [facility]Up [facility] [employer] [place] [address] [place] [address] Amy Amaro MD TSH, LIPID PANEL, COMPREHENSIVE METABOLIC PANEL, CBC WITH DIFFERENTIAL 03/15/2024 9:40 AM LUGGER Office Visit [facility] [employer] [place] [address] [place] [address] Screening for condition (Primary Dx) 03/14/2024 External Device Data STL ABSTRACTION Provider, Abstract 02/29/2024 7:30 AM LUGGER Office Visit [facility] [email or web address] [place] [address] [place] [address] Amy Amaro MD Influenza A [...] Comments Blood Pressure 98/78 03/15/2024 9:35 AM LUGGER Pulse 90 02/29/2024 7:27 AM LUGGER Temperature 35.7 C (96.2 F) 02/29/2024 7:27 AM LUGGER Respiratory Rate 18 02/29/2024 7:27 AM LUGGER Oxygen Saturation 99% 02/29/2024 7:27 AM LUGGER Inhaled Oxygen Concentration - - Weight 92.8 kg (204 lb 9.6 oz) 03/15/2024 9:35 A M LUGGER Height 172.7 cm (5' 8 ) 03/15/2024 9:35 AM LUGGER Body Mass Index 31.11 03/15/2024 9:35 AM LUGGER Plan of Treatment Health Maintenance Due Date [...] CBC WITH DIFFERENTIAL Routine 03/15/2024 9:24 AM LUGGER Screening for condition COMPREHENSIVE METABOLIC PANEL Routine 03/15/2024 9:24 AM LUGGER Screening for condition LIPID PANEL Routine 03/15/2024 9:24 AM LUGGER Screening for condition TSH Routine 03/15/2024 9:24 AM LUGGER Screening for condition from Last 3 Months Results * CBC WITH DIFFERENTIAL (03/15/2024 9:24 AM LUGGER) WBC 6.7 3.8 - 10.8 Thousand/u L [...] [facility] Comment: Test Performed at: [facility] [id number] [address] Birgit De La O MD Blood 03/15/2024 9:24 AM LUGGER 03/16/2024 3:58 AM LUGGER us Amy Amaro MD HEMATOLOGY ORDERABLES Final Re sult Performing Organization Address [facility] Co de Phone Number [facility] [phone] [facility] [address] * TSH (03/15/2024 9:24 AM LUGGER) TSH 0.62 0.40 - 4.50 mIU/L [facility] Comment: Test Performed at: [facility] [address] [place] [address] Birgit De La O MD Blood 03/15/2024 9:24 AM LUGGER 03/16/2024 3:58 AM LUGGER us Amy Amaro MD CHEMISTRY ORDERABLES Final Res ult Performing Organization Address [facility] Co de Phone Number [facility] [phone] [facility] [address] * (ABNORMAL) LIPID PANEL (03/15/2024 9:24 AM LUGGER) Pathologist [facility] CHOLESTEROL 169 <200 mg/dL [facility] [...] LDL-C. Mark SS et al. DAREN. 2013;310(19): 5985-7722 (http://education.Bookioo.MobSoc Media/faq/QPC413) CHOL/HDL RATIO 4.4 <5.0 (calc) [facility] NON-HDL CHOLESTEROL 131(H) <130 mg/dL (calc) [facility] Comment: For patients with diabetes plus 1 major ASCVD risk factor, treating to a non-HDL-C goal of <100 mg/dL (LDL-C of <70 mg/dL) is considered a therapeutic option. Test Performed at: [facility] [address] [address] Birgit De La O MD Blood 03/15/2024 9:24 AM LUGGER 03/16/2024 3:58 AM LUGGER us Amy Amaro MD CHEMISTRY ORDERABLES Final Res ult [facility] [phone] [facility] [address] [address] * (ABNORMAL) COMPREHENSIVE METABOLIC PANEL (03/15/2024 9:24 AM LUGGER) GLUCOSE 161(H) 65 - 99 mg/dL [facility] Comment: Fasting reference interval For someone [...] [facility] Comment: Test Performed at: [facility] [address] [place] [address] Birgit De La O MD Blood 03/15/2024 9:24 AM LUGGER 03/16/2024 3:58 AM LUGGER us Amy Amaro MD CHEMISTRY ORDERABLES Final Res ult [facility] [phone] [facility] [address] [place] [address] from Last 3 Months Insurance * Guarantor: [employer]) Account Type Relation to Patient Date of Phone Billing Address Corporate Employer ATTN: JENARO MACKAY [address] [address] ALLEGIAN OPEN ACCESS Care Teams Director Stars Relationship Specialty Start Date End Date Gregg Solitario DO [address] [place] [address] PCP - General Family Practice 04/03/22
--- OUTSIDE RECORDS SUMMARY | 2024-04-03 16:06 | XMS_ITS | Encounter Summary ---
Author Organization [facility] Address [address] [place] [address] Care Team Providers Care Story Writer Name Role Phone Gregg Solitario DO Primary Care Provider [phone] Encounter Details Date Type Department Care Team (Late st Contact Info) Description 03/16/2024 Results Follow-Up [facility] at Work [employer] [place] [address] [place] [address] Amy Amaro MD [address] [place] [address] TSH, LIPID PANEL, COMPREHENSIVE METABOLIC [...] Called and informed pt who voiced understanding. ICATE MAKER documented in this encounter Plan of Treatment Not on file documented as of this encounter Visit Diagnoses Not on filedocumented in this encounter Care Teams Story Writer Relationship Specialty Start Date End Date Gregg Solitario DO [address] [place] [address] PCP - General Family Practice 04/03/22 documented as of this encounter
--- OUTSIDE RECORDS SUMMARY | 2024-04-03 16:06 | XMS_ITS | Clinical Summary ---
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
[2024-04-03] MEDS: KETOROLAC 15 MG/ML VIAL (*BKC) IV PUSH (16:23)
[2024-04-03] MEDS: LACTATED RINGERS 1,000 ML 999 ML IV CONT (16:24)
[2024-04-03 17:08] LABS: Troponin I < 0.012 ng/mL (0.000-0.034)
== END 2024-04-03 17:44 | disposition home or self-care (01) ==
PROVIDERS: Emergency Provider Emergency Medicine; PCP Family Medicine
DX: B34.9 Viral infection, unspecified (principal); Z20.822 Contact with and (suspected) exposure to COVID-19; I10 Essential (primary) hypertension; E11.9 Type 2 diabetes mellitus without complications; E78.5 Hyperlipidemia, unspecified; G47.33 Obstructive sleep apnea (adult) (pediatric); Z87.891 Personal history of nicotine dependence; Z79.85 Long-term (current) use of injectable non-insulin antidiabetic drugs; Z79.899 Other long term (current) drug therapy
CPT/HCPCS: 36415; 71046; 71275; 80053; 83690; 84484; 85025; 85610; 85730; 87637; 93005; 96361; 96374; 99284; J1885; J7120; Q9967

== ENCOUNTER 2024-04-05 11:18 | Outpatient (CLI) | payer OTHER, SELFPAY ==
[2024-04-05 11:44] LABS: Basophils Absolute Auto 0.02 K/mm3 (0.00-0.10); Basophils Percent Auto 0.3 % (0.0-1.0); Eosinophils Absolute Auto 0.02 K/mm3 (0.02-0.50); Eosinophils Percent Auto 0.3 % (1.0-6.0); Hematocrit 42.9 % (40.0-54.0); Hemoglobin 14.6 g/dL (14.0-18.0); Immature Granulocyte Absolute 0.02 K/mm3 (0.00-0.00); Immature Granulocyte Percent A 0.3 % (0.0-0.0); Lymphocytes Absolute Auto 1.35 K/mm3 (1.10-4.50); Lymphocytes Percent Auto 21.6 % (18.0-42.0); Mean Corpuscular Hemoglobin 29.2 pg (27.0-31.0); Mean Corpuscular Volume 85.8 fL (78.0-102.0); Mean Platelet Volume 10.3 fl (8.7-11.0); Monocytes Absolute Auto 0.64 K/mm3 (0.10-0.90); Monocytes Percent Auto 10.2 % (2.0-11.0); Neutrophils Absolute Auto 4.21 K/mm3 (1.70-7.20); Neutrophils Percent Auto 67.3 % (50.0-70.0); Platelet Count Result 190 K/mm3 (150-420); Red Cell Distribution Width 12.4 % (11.6-14.4); White Blood Count 6.3 K/mm3 (4.8-10.8)
[2024-04-05 11:45] LABS: Add Urine Microscopic? NO; Appearance Urine Clear (Clear); Bilirubin Urine Negative (Negative); Blood Urine Negative (Negative); Color Urine Yellow (Yellow); Glucose Urine UA 3+ (Negative); HCO3 VBG 20.2 mEq/l (24.0-30.0); Ketones Urine Negative (Negative); Leukocyte Esterase Ur Negative (Negative); Nitrate Urine Negative (Negative); PO2 VBG 31.7 mmHg (35.0-45.0); Protein Urine Negative (Negative); pH VBG 7.39 (7.33-7.43)
[2024-04-05 11:46] LABS: Device ROOM AIR
[2024-04-05 11:54] LABS: Acetone Negative (Negative)
[2024-04-05 12:00] LABS: Alanine Aminotransferase 24 U/L (16-63); Albumin Level 3.2 g/dL (3.4-5.0); Alkaline Phosphatase 75 U/L (46-116); Anion Gap 12 mmol/L (4-12); Aspartate Amino Transferase 12 U/L (15-37); Bilirubin,Total 0.7 mg/dL (0.00-1.00); Blood Urea Nitrogen 12 mg/dL (7-18); Calcium 8.6 mg/dL (8.5-10.1); Carbon Dioxide 24 mmol/L (21-32); Chloride 98 mmol/L (98-108); Estimated Glomerular Filt Rate > 60; Glucose 350 mg/dL (70-99); Osmolality Calculated 291 mOsm/kg (285-295); Potassium 4.7 mmol/L (3.5-5.1); Sodium 134 mmol/L (136-145); Total Protein 7.1 g/dL (6.4-8.2)
[2024-04-05 12:10] LABS: Phosphorus 3.8 mg/dL (2.6-4.7)
[2024-04-05 12:21] LABS: Thyroid Stimulating Hormone Reflex 0.91 u/IU/mL (0.36-3.74)
--- OUTSIDE RECORDS SUMMARY | 2024-04-05 13:12 | XMS_ITS | Clinical Summary ---
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
--- OUTSIDE RECORDS SUMMARY | 2024-04-05 13:12 | XMS_ITS | Encounter Summary ---
Author Organization [facility] Address [address] [place] [address] Care Team Providers Care Professor Of Psychology Name Role Phone Gregg Solitario DO Primary Care Provider [phone] Encounter Details Date Type Department Care Team (Late st Contact Info) Description 03/16/2024 Results Follow-Up [facility] at [facility] [employer] [address] [place] [place] [address] Amy Amaro MD [address] [place] [address] TSH, LIPID PANEL, COMPREHENSIVE METABOLIC [...] Called and informed pt who voiced understanding. TRICAL ASSEMBLER documented in this encounter Plan of Treatment Not on file documented as of this encounter Visit Diagnoses Not on filedocumented in this encounter Care Teams Professor Of Psychology Relationship Specialty Start Date End Date Gregg Solitario DO [address] [place] [address] PCP - General Family Practice 04/03/22 documented as of this encounter
--- OUTSIDE RECORDS SUMMARY | 2024-04-05 13:12 | XMS_ITS | Encounter Summary ---
Author Organization [employer] Address [address] [place] [address] Care Team Providers Care Manager Store Name Role Phone Gregg Solitario DO Primary Care Provider [phone] Encounter Details Date Type Department Care Team (Late st Contact Info) Description 04/04/2024 External Device Data ST[facility] ABSTRACTION Provider, Abstract NO ADDRESS ON FILE Social History Tobacco Use Types Packs/Day Years Used Date Smoking Tobacco: Never Assessed Sex and Gender Information Value Date Recorded Sex Assigned at Male 10/12/2023 6:32 AM CDT Legal Sex Male 2:10 PM CDT Gender Identity Male 10/12/2023 6:32 AM CDT Sexual Orientation Straight 10/12/2023 6: 32 AM CDT documented as of this encounter Plan of Treatment Not on file documented as of this encounter Visit Diagnoses Not on filedocumented in this encounter Care Teams Manager Store Relationship Specialty Start Date End Date Gregg Solitario DO [address] [place] [address] PCP - General Family Practice 04/03/22 documented as of this encounter
--- OUTSIDE RECORDS SUMMARY | 2024-04-05 13:12 | XMS_ITS | Clinical Summary ---
Author Organization [facility] [employer] [place] Address [address] [facility] [address] [address] Care Team Providers Care Heavy Machinery Operator Name Role Phone AltafGregg Primary Care Provider [phone] Allergies No known active allergies Medications Mounjaro [...] Encounters Date Type Department Care Team Description 04/04/2024 External Device Data STL ABSTRACTION Provider, Abstract 03/16/2024 Results Follow-Up [facility] [address] [place] [address] Amy Amaro MD TSH, LIPID PANEL, COMPREHENSIVE METABOLIC PANEL, CBC WITH DIFFERENTIAL 03/15/2024 9:40 AM CHIEF EXECUTIVE Office Visit [facility] [address] [place] [address] Screening for condition (Primary Dx) 03/14/2024 External Device Data STL ABSTRACTION Provider, Abstract 02/29/2024 7:30 AM CHIEF EXECUTIVE Office Visit [facility] [address] [place] [address] Amy Amaro MD Influenza A [...] Comments Blood Pressure 98/78 03/15/2024 9:35 AM CHIEF EXECUTIVE Pulse 90 02/29/2024 7:27 AM CHIEF EXECUTIVE Temperature 35.7 C (96.2 F) 02/29/2024 7:27 AM CHIEF EXECUTIVE Respiratory Rate 18 02/29/2024 7:27 AM CHIEF EXECUTIVE Oxygen Saturation 99% 02/29/2024 7:27 AM CHIEF EXECUTIVE Inhaled Oxygen Concentration - - Weight 92.8 kg (204 lb 9.6 oz) 03/15/2024 9:35 A M CHIEF EXECUTIVE Height 172.7 cm (5' 8 ) 03/15/2024 9:35 AM CHIEF EXECUTIVE Body Mass Index 31.11 03/15/2024 9:35 AM CHIEF EXECUTIVE Plan of Treatment Health Maintenance Due Date [...] CBC WITH DIFFERENTIAL Routine 03/15/2024 9:24 AM CHIEF EXECUTIVE Screening for condition COMPREHENSIVE METABOLIC PANEL Routine 03/15/2024 9:24 AM CHIEF EXECUTIVE Screening for condition LIPID PANEL Routine 03/15/2024 9:24 AM CHIEF EXECUTIVE Screening for condition TSH Routine 03/15/2024 9:24 AM CHIEF EXECUTIVE Screening for condition from Last 3 Months Results * CBC WITH DIFFERENTIAL (03/15/2024 9:24 AM CHIEF EXECUTIVE) WBC 6.7 3.8 - 10.8 Thousand/u L [...] [facility] Comment: Test Performed at: [facility] [address] [place] [address] Birgit De La O MD Blood 03/15/2024 9:24 AM CHIEF EXECUTIVE 03/16/2024 3:58 AM CHIEF EXECUTIVE us Amy Amaro MD HEMATOLOGY ORDERABLES Final Re sult Performing Organization Address City/[facility]/ZIP Co de Phone Number [facility] [phone] [facility] [address] * TSH (03/15/2024 9:24 AM CHIEF EXECUTIVE) Pathologist [facility] TSH 0.62 0.40 - 4.50 mIU/L [facility] Comment: Test Performed at: [facility] [address] Birgit De La O MD Blood 03/15/2024 9:24 AM CHIEF EXECUTIVE 03/16/2024 3:58 AM CHIEF EXECUTIVE us Amy Amaro MD CHEMISTRY ORDERABLES Final Res ult Performing Organization Address [facility] Co de Phone Number [place] [phone] [facility] [address] * (ABNORMAL) LIPID PANEL (03/15/2024 9:24 AM CHIEF EXECUTIVE) [facility] CHOLESTEROL 169 <200 mg/dL [facility] [...] factors. LDL-C is now calculated using the Sonam calculation, which is a validated novel method providing better accuracy than the Friedewald equation in the estimation of LDL-C. Mark MENENDEZ et al. DAREN. 2013;310(19): 7148-6641 (http://education.[employer]/faq/DKF288) CHOL/HDL RATIO 4.4 <5.0 (calc) [facility] NON-HDL CHOLESTEROL 131(H) <130 mg/dL (calc) [facility] Comment: For patients with diabetes plus 1 major ASCVD risk factor, treating to a non-HDL-C goal of <100 mg/dL (LDL-C of <70 mg/dL) is considered a therapeutic option. Test Performed at: [facility] [address] [facility] [place] [address] Birgit De La O MD Blood 03/15/2024 9:24 AM CHIEF EXECUTIVE 03/16/2024 3:58 AM CHIEF EXECUTIVE us Amy Amaro MD CHEMISTRY ORDERABLES Final Res ult [facility] [phone] [place] [address] [facility] [place] [address] * (ABNORMAL) COMPREHENSIVE METABOLIC PANEL (03/15/2024 9:24 AM CHIEF EXECUTIVE) GLUCOSE 161(H) 65 - 99 mg/dL [facility] Comment: Fasting reference interval For someone [...] [facility] Comment: Test Performed at: [facility] [address] [place] [address] Birgit De La O MD Blood 03/15/2024 9:24 AM CHIEF EXECUTIVE 03/16/2024 3:58 AM CHIEF EXECUTIVE us Amy Amaro MD CHEMISTRY ORDERABLES Final Res ult [facility] [phone] [facility] [address] [phone] from Last 3 Months Insurance ALLEGIAN OPEN ACCESS Care Teams Heavy Machinery Operator Relationship Specialty Start Date End Date Gregg Solitario DO [address] [place] [address] PCP - General Family Practice 04/03/22
[2024-04-05 16:56] LABS: Creatinine Urine 86.34 mg/dL (40-278); Microalbumin Urine Random < 13.0 mg/L
== END 2024-04-05 11:19 | disposition home or self-care (01) ==
PROVIDERS: PCP Family Medicine; Visit Provider Nurse Practitioner Family
DX: Z00.00 Encounter for general adult medical examination without abnormal findings (principal); E11.9 Type 2 diabetes mellitus without complications
CPT/HCPCS: 36415; 80053; 81003; 82010; 82043; 82803; 83735; 84100; 84443; 85025

== ENCOUNTER 2024-04-14 14:06 | Outpatient (NON) | payer OTHER, SELFPAY ==
[2024-04-14 14:17] LABS: Appearance Urine Clear (Clear); Bilirubin Urine Negative (Negative); Blood Urine Negative (Negative); Color Urine Yellow (Yellow); Glucose Urine UA Negative (Negative); Ketones Urine Negative (Negative); Nitrate Urine Negative (Negative); Protein Urine Negative (Negative); Specific Grav Ur >= 1.030 (1.010-1.020)
--- OUTSIDE RECORDS SUMMARY | 2024-04-14 14:24 | XMS_ITS | Encounter Summary ---
Author Organization [facility] Address [address] [place] [address] Care Team Providers Care Patient Care Director Name Role Phone Gregg Solitario DO Primary Care Provider [phone] Encounter Details Date Type Department Care Team (Late st Contact Info) Description 03/16/2024 Results Follow-Up [facility] at [facility] [employer] [place] [address] [place] [address] Amy Amaro MD [address] [place] [address] TSH, LIPID PANEL, COMPREHENSIVE METABOLIC [...] Called and informed pt who voiced understanding. KFAST SERVER documented in this encounter Plan of Treatment Not on file documented as of this encounter Visit Diagnoses Not on filedocumented in this encounter Care Teams Patient Care Director Relationship Specialty Start Date End Date Gregg Solitario DO [address] [place] [address] PCP - General Family Practice 04/03/22 documented as of this encounter
--- OUTSIDE RECORDS SUMMARY | 2024-04-14 14:24 | XMS_ITS | Clinical Summary ---
Author Organization [facility] Address [address] [address] Care Team Providers Care Cotton Tier Name Role Phone AltafGregg Primary Care Provider [phone] Allergies No known active allergies Medications Mounjaro [...] STL ABSTRACTION Provider, Abstract 03/16/2024 Results Follow-Up [facility] [place] [address] [place] [address] Amy Amaro MD TSH, LIPID PANEL, COMPREHENSIVE METABOLIC PANEL, CBC WITH DIFFERENTIAL 03/15/2024 9:40 AM BLANKBOOK STITCHING MACHINE OPERATOR Office Visit [facility] [place] [address] [place] [address] Screening for condition (Primary Dx) 03/14/2024 External Device Data STL ABSTRACTION Provider, Abstract 02/29/2024 7:30 AM BLANKBOOK STITCHING MACHINE OPERATOR Office Visit [facility] [place] [address] [place] [address] Amy Amaro MD Influenza A [...] Comments Blood Pressure 98/78 03/15/2024 9:35 AM BLANKBOOK STITCHING MACHINE OPERATOR Pulse 90 02/29/2024 7:27 AM BLANKBOOK STITCHING MACHINE OPERATOR Temperature 35.7 C (96.2 F) 02/29/2024 7:27 AM BLANKBOOK STITCHING MACHINE OPERATOR Respiratory Rate 18 02/29/2024 7:27 AM BLANKBOOK STITCHING MACHINE OPERATOR Oxygen Saturation 99% 02/29/2024 7:27 AM BLANKBOOK STITCHING MACHINE OPERATOR Inhaled Oxygen Concentration - - Weight 92.8 kg (204 lb 9.6 oz) 03/15/2024 9:35 A M BLANKBOOK STITCHING MACHINE OPERATOR Height 172.7 cm (5' 8 ) 03/15/2024 9:35 AM BLANKBOOK STITCHING MACHINE OPERATOR Body Mass Index 31.11 03/15/2024 9:35 AM BLANKBOOK STITCHING MACHINE OPERATOR Plan of Treatment Health Maintenance Due Date [...] CBC WITH DIFFERENTIAL Routine 03/15/2024 9:24 AM BLANKBOOK STITCHING MACHINE OPERATOR Screening for condition COMPREHENSIVE METABOLIC PANEL Routine 03/15/2024 9:24 AM BLANKBOOK STITCHING MACHINE OPERATOR Screening for condition LIPID PANEL Routine 03/15/2024 9:24 AM BLANKBOOK STITCHING MACHINE OPERATOR Screening for condition TSH Routine 03/15/2024 9:24 AM BLANKBOOK STITCHING MACHINE OPERATOR Screening for condition from Last 3 Months Results * CBC WITH DIFFERENTIAL (03/15/2024 9:24 AM BLANKBOOK STITCHING MACHINE OPERATOR) WBC 6.7 3.8 - 10.8 Thousand/u L [...] [facility] Comment: Test Performed at: [facility] [address] [place] [address] Birgit De La O MD Blood 03/15/2024 9:24 AM BLANKBOOK STITCHING MACHINE OPERATOR 03/16/2024 3:58 AM BLANKBOOK STITCHING MACHINE OPERATOR us Amy Amaro MD HEMATOLOGY ORDERABLES Final Re sult Performing Organization Address City/[facility]/ZIP Co de Phone Number [facility] [phone] [facility] [[email or web address]] Medication [address] [address] * TSH (03/15/2024 9:24 AM BLANKBOOK STITCHING MACHINE OPERATOR) Pathologist [facility] TSH 0.62 0.40 - 4.50 mIU/L [facility] Comment: Test Performed at: [facility] [address] Birgit De La O MD Blood 03/15/2024 9:24 AM BLANKBOOK STITCHING MACHINE OPERATOR 03/16/2024 3:58 AM BLANKBOOK STITCHING MACHINE OPERATOR us Amy Amaro MD CHEMISTRY ORDERABLES Final Res ult Performing Organization Address [facility] Co de Phone Number [place] [phone] [facility] [[email or web address]] Medication [facility]-[place] [address] * (ABNORMAL) LIPID PANEL (03/15/2024 9:24 AM BLANKBOOK STITCHING MACHINE OPERATOR) [facility] CHOLESTEROL 169 <200 mg/dL [facility] [...] LDL-C. Mark MENENDEZ et al. DAREN. 2013;310(19): 3786-4214 (http://education.PlasmaSi/faq/OEZ062) CHOL/HDL RATIO 4.4 <5.0 (calc) [facility] NON-HDL CHOLESTEROL 131(H) <130 mg/dL (calc) [facility] Comment: For patients with diabetes plus 1 major ASCVD risk factor, treating to a non-HDL-C goal of <100 mg/dL (LDL-C of <70 mg/dL) is considered a therapeutic option. Test Performed at: [facility] [address] [facility] [place] [address] Birgit De La O MD Blood 03/15/2024 9:24 AM BLANKBOOK STITCHING MACHINE OPERATOR 03/16/2024 3:58 AM BLANKBOOK STITCHING MACHINE OPERATOR us Amy Amaro MD CHEMISTRY ORDERABLES Final Res ult [facility] [phone] [employer] [address] [facility] [place] [address] * (ABNORMAL) COMPREHENSIVE METABOLIC PANEL (03/15/2024 9:24 AM BLANKBOOK STITCHING MACHINE OPERATOR) GLUCOSE 161(H) 65 - 99 mg/dL [facility] Comment: Fasting reference interval For someone [...] [facility] Comment: Test Performed at: [facility] [address] [place] [address] Birgit De La O MD Blood 03/15/2024 9:24 AM BLANKBOOK STITCHING MACHINE OPERATOR 03/16/2024 3:58 AM BLANKBOOK STITCHING MACHINE OPERATOR us Amy Amaro MD CHEMISTRY ORDERABLES Final Res ult [facility] [phone] [facility] [address] [phone] from Last 3 Months Insurance ALLEGIAN OPEN ACCESS Care Teams Cotton Tier Relationship Specialty Start Date End Date Gregg Solitario DO [address] [place] [address] PCP - General Family Practice 04/03/22
--- OUTSIDE RECORDS SUMMARY | 2024-04-14 14:24 | XMS_ITS | Clinical Summary ---
Author Organization [facility] Address [address] [place] [address] Care Team Providers Care Tow Car Driver Name Role Phone Unavailable Primary Care Provider Unavailabl e Social History Tobacco Use Types Packs/Day Years Used Date Smoking Tobacco: Never Assessed Sex and Gender Information Value Date Recorded Sex Assigned at Not on file Legal Sex Male 7:00 PM RELAY DISPATCHER Gender Identity Not on file Sexual Orientation [...]
[2024-04-14 14:25] LABS: Add Urine Microscopic? NO; Leukocyte Esterase Ur Negative LEU/UL (Negative)
== END 2024-04-14 14:07 | disposition home or self-care (01) ==
LOC: CHSLAB 14:07
PROVIDERS: PCP Nurse Practitioner Family; Visit Provider Nurse Practitioner Family
DX: E11.9 Type 2 diabetes mellitus without complications (principal)
CPT/HCPCS: 81003

== ENCOUNTER 2024-08-04 15:20 | Outpatient (CLI) | payer OTHER, MEDICAID, SELFPAY ==
[2024-08-04 15:56] LABS: Alanine Aminotransferase 26 U/L (6-50); Albumin Level 3.9 g/dL (3.5-5.1); Alkaline Phosphatase 58 U/L (38-126); Anion Gap 3 mmol/L (4-12); Aspartate Amino Transferase 28 U/L (17-59); Bilirubin,Total 0.4 mg/dL (0.2-1.3); Blood Urea Nitrogen 10 mg/dL (9-20); Calcium 9.1 mg/dL (8.4-10.2); Carbon Dioxide 31 mmol/L (22-30); Chloride 105 mmol/L (98-107); Estimated Glomerular Filt Rate > 60; Glucose 269 mg/dL (65-110); Osmolality Calculated 296 mOsm/kg (285-295); Potassium 4.9 mmol/L (3.4-5.0); Sodium 139 mmol/L (137-145); Total Protein 6.5 g/dL (6.3-8.2)
== END 2024-08-04 15:21 | disposition home or self-care (01) ==
LOC: CHSLAB 15:21
PROVIDERS: PCP Nurse Practitioner Family; Visit Provider Nurse Practitioner Family
DX: E11.9 Type 2 diabetes mellitus without complications (principal)
CPT/HCPCS: 36415; 80053; 83036

== ENCOUNTER 2024-11-12 18:50 | Emergency (ER) | payer OTHER, MEDICAID, SELFPAY ==
[2024-11-12 19:00] VITALS: BP 172/117; PULSE 96; RESP 16; TEMP 36.5; O2SAT 100
--- NOTE | 2024-11-12 19:03 | ED_ITS ---
HPI - General Adult General Chief complaint: Ear Stated complaint: BURNING PAIN IN NOSE Time Seen by Provider: 11/12/24 19:03 Source: patient Mode of arrival: ambulatory Limitations: no limitations History of Present Illness HPI narrative: 39-year-old male history of diabetes, ERROL, and hypertension presented for complaint of redness, swelling and pain to his nose. Onset 4 days. Pain is described as a 'sunburn.' Feels like he has sores inside of his nose as well. Endorses associated headache and sinus pressure. Reports a runny nose 1 week ago, he used saline mist and had improvement until 4 days ago. Denies nose bleeds, nausea vomiting, diarrhea, fevers or chills. Admits to not taking his blood pressure medications. Related Data Home Medications ?Medication ?Instructions ?Recorded ?Confirmed ?Last Taken ?Type tirzepatide 10 mg/0.5 mL mg subcut 11/12/24 Unknown History subcutaneous pen injector (Mounjaro) Allergies Allergy/AdvReac Type Severity Reaction Status Date / Time No Known Allergies Allergy Verified 11/12/24 19:01 Review of Systems Review of Systems: CONSTITUTIONAL: Denies body aches, fever, chills, or sweats. EYES: Denies visual changes, redness, or discharge. ENT: Reports swelling redness, rhinorrhea, congestion, denies sore throat, or otalgia. CARDIOVASCULAR: Denies chest pain, palpitations, or edema. RESPIRATORY: Denies cough or dyspnea. SKIN: Denies wounds. NEUROLOGIC: Denies headache, numbness, tingling, or weakness. All systems reviewed & are unremarkable except as noted in HPI and below PMFSH Past Medical History Medical History Hypertension ERROL (obstructive sleep apnea) DM2 (diabetes mellitus, type 2) Hyperlipidemia Diabetes mellitus Surgical History Surgical History No history of previous surgery No significant past surgical history Family History Family History Mother , Age 28 Acute myocardial infarction Social History Social History Smoking packs per day: 1 Smoking cigarettes per day: 20.0 Years smoked: 15 Smoking pack-years: 15.00 Smoking status: Current some day smoker Additional smoking assessment comments: Quit smoking August 2020. 15pk yr history. Gender identity (if verbalized by the patient): Male Comments At time of signature, I have reviewed and agree with nursing past medical, surgical, social and family history unless otherwise noted. Please see nursing chart for further information. There is no relevant family history pertinent to the presenting complaint Exam Narrative: GENERAL: Well-appearing EYES: EOMI. PERRLA, no swelling, No redness or drainage. Conjunctivae normal. ENT: Mucous membranes pink and moist. Erythema and mild swelling to nose, tender, No apparent polyps or ulcers to internal nares, no epistaxis. Mild rhinorrhea. TMs normal bilaterally. Throat normal. Uvula midline. CHEST: No respiratory distress. Clear to auscultation. HEART: Regular rate and rhythm. No murmur appreciated. Normal peripheral pulses. SKIN: Warm, dry, no rash. Capillary refill normal. Normal skin turgor. NEURO: No focal deficits. Alert and oriented x3. PSYCH: flat affect. Course Course Emergency Course: Patient is aware of diagnosis, understands and agrees to treatment plan. Anticipatory guidance given. Patient agrees to follow-up as directed and is aware of reasons to seek care at the emergency department. Portions of this record may have been created with voice recognition software Level of Care: Express Care Visit Vital Signs Vital signs: Vital Signs Temperature 97.7 F 11/12/24 19:00 Pulse Rate 96 11/12/24 19:00 Respiratory Rate 16 11/12/24 19:00 Blood Pressure 172/117 H 11/12/24 19:00 Pulse Oximetry 100 11/12/24 19:00 Temperature 97.7 F 11/12/24 19:00 Pulse Rate 96 11/12/24 19:00 Respiratory Rate 16 11/12/24 19:00 Blood Pressure 172/117 H 11/12/24 19:00 Pulse Oximetry 100 11/12/24 19:00 Medical Decision Making MDM Narrative Medical decision making narrative: Discussed physical exam findings and elevated blood pressure. He states he usually has normal blood pressure but it rises significantly when he is in pain. Also discussed danger triangle and risk associated with infection, reviewed RX. Advised supportive measures and signs/symptoms to go to the ER. Pt is appropriate for outpt treatment and f/u with pcp tomorrow. Differential Diagnosis Differential Diagnosis: Influenza, covid, sinusitis, OM, strep pharyngitis, URI, nasal vestibulitis, nasal polyps Vital Signs Vital Signs: Vital Signs Temperature 97.7 F 11/12/24 19:00 Pulse Rate 96 11/12/24 19:00 Respiratory Rate 16 11/12/24 19:00 Blood Pressure 172/117 H 11/12/24 19:00 Pulse Oximetry 100 11/12/24 19:00 Temperature 97.7 F 11/12/24 19:00 Pulse Rate 96 11/12/24 19:00 Respiratory Rate 16 11/12/24 19:00 Blood Pressure 172/117 H 11/12/24 19:00 Pulse Oximetry 100 11/12/24 19:00 reviewed Discharge Plan Discharge Clinical Impression: Nasal vestibulitis Patient Disposition: Home Condition: Stable Instructions: Antibiotic Form, Cellulitis (ED) Additional Instructions: Your blood pressure reading was elevated (above 120/80) please follow-up with your primary care provider for further evaluation and management. If you develop worsening Blood Pressure symptoms, (headache, vision changes, dizziness, vomiting, chest pain, etc) go to the ER. Call 911. Apply the ointment as directed Take antibiotic as directed Tyelnol as needed for pain Saline nasal mist as needed We discussed the serious risks associated with an infection in the 'danger triangle.' You are to go directly to the ER for any worsening symptoms including but not limited to headache, eye pain/swelling, difficulty moving your eyes, vision changes, facial numbness, seizure, fever, nausea/vomiting Follow up with your primary care provider tomorrow Patient Language: Finnish Prescriptions: New clindamycin HCl [Cleocin HCl] 150 mg capsule 450 mg PO Q6H 7 Days Qty: 84 0RF mupirocin 2 % ointment 1 applic topical TID 10 Days Qty: 22 0RF No Action Mounjaro 10 mg/0.5 mL pen injector SUBCUT (DME) FreeStyle Francisco 3 [place] Misc See Rx Instructions .Route Qty: 1 0RF Rx Instructions: ACHS metformin 500 mg tablet 500 mg PO BIDWMEAL 30 Days Qty: 60 2RF (DME) FreeStyle Francisco 3 Sensor Device See Rx Instructions .Route Qty: 2 5RF Rx Instructions: ACHS sertraline 25 mg tablet 25 mg PO DAILY Qty: 90 0RF OneTouch Ultra Blue Test Strip Strip See Rx Instructions .ROUTE .COMPLEX Qty: 100 5RF Dose Instruction: USE FOR TESTING THREE TIMES A DAY DIRECTED Rx Instructions: USE FOR TESTING THREE TIMES A DAY DIRECTED lancets [OneTouch Delica Plus Lancet] 33 gauge misc See Rx Instructions .ROUTE .COMPLEX Qty: 100 5RF Dose Instruction: USE FOR TESTING THREE TIMES A DAY DIRECTED Rx Instructions: USE FOR TESTING THREE TIMES A DAY DIRECTED (DME) pen needle, diabetic [TRUEplus Pen Needle] 31 gauge x 3/16 needle See Rx Instructions .ROUTE .COMPLEX Qty: 100 3RF Dose Instruction: USE TWICE A DAY DIRECTED Rx Instructions: USE TWICE A DAY DIRECTED. Dx: E11.9 insulin glargine-yfgn [Semglee(insulin glarg-yfgn)Pen] 100 unit/mL (3 mL) insulin pen 14 unit subcut QPM Qty: 15 1RF Follow-up/Referrals: Idris Gonzalez APRN [Primary Care Provider, Family Practice] Stand Alone Forms: Work/School Release IP
== END 2024-11-12 19:32 | disposition home or self-care (01) ==
PROVIDERS: Emergency Provider Nurse Practitioner Family; PCP Nurse Practitioner Family
DX: J34.89 Other specified disorders of nose and nasal sinuses (principal); Z87.891 Personal history of nicotine dependence; I10 Essential (primary) hypertension; E11.9 Type 2 diabetes mellitus without complications; Z79.4 Long term (current) use of insulin; Z79.84 Long term (current) use of oral hypoglycemic drugs; Z79.85 Long-term (current) use of injectable non-insulin antidiabetic drugs; E78.5 Hyperlipidemia, unspecified
CPT/HCPCS: 99213; G0463

== ENCOUNTER 2024-11-14 16:26 | Outpatient (NON) | payer OTHER, MEDICAID, SELFPAY ==
--- OUTSIDE RECORDS SUMMARY | 2024-11-14 16:46 | XMS_ITS | Clinical Summary ---
Author Organization [facility] [employer] [facility] Address [address] [address] Care Team Providers Care Automatic Blocker Name Role Phone Gregg Solitario DO Primary Care Provider [phone] Allergies No known active allergies Medications Mounjaro 7.5 mg/0.5 mL Pen Injector Inject 7.5 mg by subcutaneous injection every 7 days. Active metFORMIN (GLUCOPHAGE) 1,000 mg tablet Take 1,000 mg by mouth 2 times daily with meals. Active lisinopriL (PRINIVIL) 5 mg tablet Take 5 mg by mouth daily. Active buPROPion HCL (WELLBUTRIN SR) 200 mg Sustained Release 12 hour tablet Take 200 mg by mouth 2 times daily. Active Active Problems No known active problems Social History Tobacco Use Types Packs/Day Years [...] Comments Blood Pressure 98/78 03/15/2024 9:35 AM FLOOR SCRAPER Pulse 90 02/29/2024 7:27 AM FLOOR SCRAPER Temperature 35.7 C (96.2 F) 02/29/2024 7:27 AM FLOOR SCRAPER Respiratory Rate 18 02/29/2024 7:27 AM FLOOR SCRAPER Oxygen Saturation 99% 02/29/2024 7:27 AM FLOOR SCRAPER Inhaled Oxygen Concentration - - Weight 92.8 kg (204 lb 9.6 oz) 03/15/2024 9:35 A M FLOOR SCRAPER Height 172.7 cm (5' 8) 03/15/2024 9:35 AM FLOOR SCRAPER Body Mass Index 31.11 03/15/2024 9:35 AM FLOOR SCRAPER Plan of Treatment Health Maintenance Due Date Last Done Comments Pre-Diabetes and Diabetes Screening 1983 DTAP/TDAP/TD VACCINES (1 - Tdap) 07/21/2002 HEPATITIS B VACCINES (1 of 3 - 19+ 3-dose series) 07/09 HPV VACCINES (1 - 3-dose SCDM series) 07/21/2010 INFLUENZA VACCINE (#1) 2024 12/13/2004 Insurance [employer]LE[employer] OPEN ACCESS Care Teams Automatic Blocker Relationship Specialty Start Date End Date Gregg Solitario DO [address] [place] [address] PCP - General Family Practice 04/03/22
== END 2024-11-14 16:27 | disposition home or self-care (01) ==
LOC: CHSLAB 16:28
PROVIDERS: PCP Nurse Practitioner Family; Visit Provider Nurse Practitioner Family
DX: J34.89 Other specified disorders of nose and nasal sinuses (principal)
CPT/HCPCS: 87070; 87075; 87205

== ENCOUNTER 2024-11-17 08:34 | Outpatient (CLI) | payer OTHER, SELFPAY ==
--- OUTSIDE RECORDS SUMMARY | 2024-11-17 08:39 | XMS_ITS | Clinical Summary ---
Author Organization [facility] [employer] [place] Address [address] [address] Care Team Providers Care Vending Machine Coin Collector Name Role Phone Gregg Solitario DO Primary Care Provider [phone] Allergies No known active allergies Medications Mounjaro [...] Comments Blood Pressure 98/78 03/15/2024 9:35 AM WELDER TOOL AND DIE Pulse 90 02/29/2024 7:27 AM WELDER TOOL AND DIE Temperature 35.7 C (96.2 F) 02/29/2024 7:27 AM WELDER TOOL AND DIE Respiratory Rate 18 02/29/2024 7:27 AM WELDER [employer]OL [employer] DIE Oxygen Saturation 99% 02/29/2024 7:27 AM WELDER TOOL AND DIE Inhaled Oxygen Concentration - - Weight 92.8 kg (204 lb 9.6 oz) 03/15/2024 9:35 A M WELDER [employer]OL [employer] DIE Height 172.7 cm (5' 8) 03/15/2024 9:35 AM WELDER TOOL AND DIE Body Mass Index 31.11 03/15/2024 9:35 AM WELDER TOOL AND DIE Plan of Treatment Health Maintenance Due Date Last Done Comments Pre-Diabetes and Diabetes Screening 1983 DTAP/TDAP/TD VACCINES (1 - Tdap) 07/21/2002 HEPATITIS B VACCINES (1 of 3 - 19+ 3-dose series) 07/09 HPV VACCINES (1 - 3-dose SCDM series) 07/21/2010 INFLUENZA VACCINE (#1) 2024 12/13/2004 Insurance ALLEGIANCE OPEN ACCESS Care Teams Vending Machine Coin Collector Relationship Specialty Start Date End Date Gregg Solitario DO [address] [place] [address] PCP - General Family Practice 04/03/22
[2024-11-17 08:58] LABS: Hemoglobin A1C 6.4 % (<5.7)
== END 2024-11-17 08:35 | disposition home or self-care (01) ==
LOC: CHSLAB 08:35
PROVIDERS: PCP Nurse Practitioner Family; Visit Provider Nurse Practitioner Family
DX: E11.9 Type 2 diabetes mellitus without complications (principal)
CPT/HCPCS: 36415; 83036